=== PATIENT | female | born 1955 | race Caucasian/White ===

== ENCOUNTER 2016-08-18 07:04 | Day surgery (SDC) | payer BC ==
[2016-08-06 17:08] LABS: BASOPHILS 0.1 %; BASOPHILS ABSOLUTE 0.01 10/3/uL (0.0-0.16); EOSINOPHILS 0 %; HEMATOCRIT 39.9 % (36.0-48.0); HEMOGLOBIN 13.3 g/dL (12.0-16.0); IMMATURE GRANULOCYTES 0.1 %; IMMATURE GRANULOCYTES ABSOLUTE 0.01 10/3/uL (0.0-0.11); LYMPHOCYTES 39.4 %; LYMPHOCYTES ABSOLUTE 2.78 10/3/uL (0.67-4.30); MANUAL DIFF NO %; MEAN CORPUS HGB CONC 33.3 g/dL (32.0-36.0); MEAN CORPUSCULAR HEMOGLOB 30.5 pg (26.0-34.0); MEAN CORPUSCULAR VOLUME 91.5 fL (80-100); MEAN PLATELET VOLUME 11.6 fL (9.2-13.0); MONOCYTES 10.6 %; MONOCYTES ABSOLUTE 0.75 10/3/uL (0.21-1.20); NEUTROPHILS 49.8 %; PLATELET COUNT 297 10/3/uL (150-400); RBC DISTRIBUTION WIDTH 12.8 % (12.0-16.0); RED CELL COUNT 4.36 10/6/uL (4.0-5.6); WHITE BLOOD CELLS 7.1 10/3/uL (4.5-10.5)
[2016-08-06 17:14] LABS: PARTIAL THROMBO TIME 28.7 SEC (22.5-37.2)
[2016-08-06 17:26] LABS: BUN (BLOOD UREA NITROGEN) 12 MG/DL (6-23); CALCIUM, SERUM 9.2 MG/DL (8.5-10.4); CHLORIDE, SERUM 108 MMOL/L (96-112); CO2 (CARBON DIOXIDE) 28 MMOL/L (24-34); CREATININE 0.78 MG/DL (0.55-1.02); GFR AFRICAN AMERICAN 96 ML/MIN (>=60); GFR NON AFRICAN AMERICAN 83 ML/MIN (>=60); GLUCOSE, SERUM 80 MG/DL (60-99); POTASSIUM, SERUM 4.1 MMOL/L (3.5-5.3); SODIUM, SERUM 144 MMOL/L (135-148)
--- NOTE | ~2016-08-18 | OP ---
Record Of Operation [facility] [address] [place]. [address] NAME: GIANLUCA MCGUIRE : 59 STATUS : [facility]#: [id number] AGE: 61 ADM/REG DATE : 08/18/16 MR#: [id number] REPORT SERV DATE: 08/18/16 DICTATED BY: CAR RAMEY DATE: 08/18/16 REPORT STATUS : Draft TRANSCRIBED BY: MODL DATE: 08/18/16 DATE OF PROCEDURE: 08/18/2016 PREOPERATIVE DIAGNOSIS: A 3 cm right thyroid nodule, Hurthle cell neoplasm. POSTOPERATIVE DIAGNOSIS: A 3 cm right thyroid nodule, Hurthle cell neoplasm. PROCEDURE PERFORMED: Right thyroid lobectomy. SURGEON: Car Ramey M.D. GEOGRAPHY HEAD: [place] Birmingham M.D. ANESTHESIA: General. COMPLICATIONS: None. CONDITION: Stable to recovery. INDICATIONS: A 61-year-old female with a 3 cm right thyroid nodule and what was described as 1.8 cm left thyroid nodule on an outside ultrasound. She underwent ultrasound in our office and it showed a 3.2 cm right superior pole thyroid nodule and heterogeneous hypoechoic change, left side without dominant nodule. 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 Risks, benefits, and alternatives to the right thyroid lobectomy, possible total thyroidectomy were explained and she agreed. PROCEDURE IN DETAIL: The patient was identified in the preoperative holding, taken back to the operating room, and placed supine on the operating room table. General anesthesia was established with a nerve integrity monitoring system endotracheal tube. The anterior tap test was positive. The surgical ink pen was used to outline a 4 cm anterior incision in a preexisting skin crease two fingerbreadths beneath the cricoid notch or the cricoid cartilage. A time-out was called and the patient and procedure were confirmed. She was then prepped and draped in a standard fashion for the operation. A 2 mL of 1% lidocaine with 1:100,000 epinephrine were used to infiltrate the incision site. Using 2.5X loupe magnification and headlight illumination, the operation commenced. A 15 blade was used to make the skin incision. Bovie cautery was used to elevate flaps superiorly and inferiorly in a subplatysmal plane. The strap muscles were divided in the midline and mobilized off the right thyroid gland. There was a firm 3 cm right upper pole thyroid nodule that was adherent to the surrounding structures from inflammation. It was dissected with hemostat, bipolar cautery, and blunt dissection. The right cricothyroid space was developed and a Maura clamp was placed on the upper pole of the right gland. The medium Hemoclips were used to secure the upper pole vessels and Harmonic scalpel was used on the patient's side to mobilize the right upper pole. The middle and inferior thyroid veins were also controlled with clips and Harmonic scalpel. The right inferior parathyroid and right upper parathyroid were identified and preserved. The gland was Record Of Operation [facility] [address] [place]. [address] NAME: GIANLUCA MCGUIRE : 59 STATUS : [facility]#: [id number] AGE: 61 ADM/REG DATE : 08/18/16 MR#: [id number] REPORT SERV DATE: 08/18/16 DICTATED BY: CAR RAMEY DATE: 08/18/16 REPORT STATUS : Draft TRANSCRIBED BY: SARAH DATE: 08/18/16 rotated out of the visceral compartment and the recurrent laryngeal nerve was identified in the tracheoesophageal groove and dissected with a Bassett nerve dissector up to Rees's ligament, which was then transected releasing the gland from the trachea and it was transected at the joint junction of the isthmus and left lobe and sent for frozen section analysis. The inferior thyroid artery was also clipped with a small hemoclip crossing over the recurrent laryngeal nerve during this dissection. 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 I then palpated the left thyroid lobe, which did not reveal a dominant nodule and it was small and atrophic. We decided to hold off on total thyroidectomy given the frozen section pathology findings and the intraoperative findings. We irrigated the neck with saline, no bleeding was noted. The recurrent laryngeal nerve was stimulated with the probe and a snapshot photograph was taken and placed in the chart confirming right vocal fold function. The upper and lower parathyroids were healthy appearing. The strap muscles were reapproximated in the midline with 3-0 interrupted Vicryl suture and the skin was closed with three interrupted Vicryl suture and a 5-0 running Monocryl followed by Steri-Strips. PH/MODL Car Ramey M.D. / [id number] CC: Car Ramey M.D.
[~2016-08-18 07:04] MED LIST: FOLIC ACID800 MCG PO; SAS500 PO; SYNTHROID200 MCG PO; ZYRTEC ALLGY10 MG PO
[2016-08-18 11:28] LABS: PTH (INTRAOPERATIVE) 27.2 PG/ML (10.0-65.0); PTH TAT 0 Hrs 20 Mins
== END 2016-08-18 17:44 | disposition home or self-care (01) ==
LOC: SDC 07:04
PROVIDERS: Specialist
PROC: 0GTH0ZZ Resection of Right Thyroid Gland Lobe, Open Approach (ICD-10-PCS; principal; 2016-08-18 09:00)
DX: E04.1 Nontoxic single thyroid nodule (principal); E06.3 Autoimmune thyroiditis; K51.90 Ulcerative colitis, unspecified, without complications; M19.90 Unspecified osteoarthritis, unspecified site; Z90.711 Acquired absence of uterus with remaining cervical stump
CPT/HCPCS: 71020; 80048; 83970; 85025; 85730; 88307; 88331; 93005; A9270-GY; J0690; J2250; J2405; J2710; J3010